=== PATIENT | male | born 1990 | race African-American/Black ===

== ENCOUNTER 2019-02-19 11:28 | Emergency (ER) | payer SELFPAY ==
[~2019-02-19] VITALS: Ht 182.9 cm; Wt 65.8 kg
[2019-02-19 11:37] VITALS: BP 137/88
[2019-02-19] MEDS ORDERED: CEFTRIAXONE SODIUM 250 MG/VIAL IM ONE (12:00)
== END 2019-02-19 14:24 | disposition home or self-care (01) ==
LOC: ER 11:28
DX: N34.2 Other urethritis (principal); F17.200 Nicotine dependence, unspecified, uncomplicated
CPT/HCPCS: 96372; 99283; J0696

== ENCOUNTER 2022-02-25 18:43 | Emergency (ER) | payer OTHER ==
[~2022-02-25] VITALS: Ht 182.9 cm; Wt 71.0 kg
[2022-02-25 18:45] VITALS: BP 139/95
[2022-02-25] MEDS ORDERED: IBUPROFEN 400MG TABLET PO ONE (20:30)
== END 2022-02-25 20:48 | disposition left against medical advice (07) ==
LOC: ER 18:50
DX: J02.9 Acute pharyngitis, unspecified (principal)
CPT/HCPCS: 99283

== ENCOUNTER 2024-05-17 19:37 | Emergency (ER) | payer MEDICAID, OTHER ==
[~2024-05-17] VITALS: Ht 180.3 cm; Wt 73.0 kg
[2024-05-17 19:43] VITALS: O2SAT 100
[2024-05-17] MEDS: FLUORESCEIN SODIUM 1MG/STRIP RIGHTEYE ONE (20:30)
[2024-05-17 20:40] VITALS: BP 125/76; PULSE 83; RESP 17; TEMP 36.66960; O2SAT 100
[2024-05-17] MEDS: TETRACAINE 0.5% OPHTH DROPS 4ML RIGHTEYE ONE (20:40)
== END 2024-05-17 22:55 | disposition home or self-care (01) ==
LOC: ER 19:37
DX: H10.9 Unspecified conjunctivitis (principal)
CPT/HCPCS: 99283